=== PATIENT | female | born 1990 | race American Indian/Alaskan Native ===

== ENCOUNTER 2017-03-06 16:55 | Emergency (ER) | payer SELFPAY ==
[2017-03-06 17:12] VITALS: TEMP 98.9
--- NOTE | 2017-03-06 18:07 | ED PDOC ---
Arrival/HPI - General Historian: Patient <Daxa Hopson A - Last Filed: 03/08/17 00:40> <Stef Martinez - Last Filed: 03/09/17 15:20> - General Chief Complaint: Psychiatric Evaluation Time Seen by Provider: 03/06/17 17:32 - History of Present Illness Narrative History of Present Illness (Text): 03/06/17 18:07 26yo morbidly obese female bib BLS for psychiatric evaluation. Patient states she was going through something and mentioned to her mother that she "does want to live". States she did not mean it, but said it at that time. She denies psych history. Denies HI, hallucination, somatic complaint. (Daxa Hopson A) Past Medical History - Provider Review Nursing Documentation Reviewed: Yes - Infectious Disease Hx of Infectious Diseases: None - Reproductive Menopause: No - Psychiatric Hx Substance Use: No <Daxa Hopson A - Last Filed: 03/08/17 00:40> Family/Social History - Physician Review Nursing Documentation Reviewed: Yes Family/Social History: Unknown Family HX Smoking Status: Unknown If Ever Smoked Hx Alcohol Use: No Hx Substance Use: No <Daxa Hopson A - Last Filed: 03/08/17 00:40> Allergies/Home Meds <Daxa Hopson A - Last Filed: 03/08/17 00:40> <Stef Martinez - Last Filed: 03/09/17 15:20> Allergies/Adverse Reactions: Allergies No Known Allergies Allergy (Verified 03/06/17 17:22) Review of Systems - Physician Review All systems were reviewed & negative as marked: Yes - Review of Systems Constitutional: Normal Eyes: Normal ENT: Normal Respiratory: Normal Cardiovascular: Normal Gastrointestinal: Normal Genitourinary Female: Normal Musculoskeletal: Normal Skin: Normal Neurological: Normal Endocrine: Normal Hemo/Lymphatic: Normal Psychiatric: Suicidal Ideation <Daxa Hopson A - Last Filed: 03/08/17 00:40> Physical Exam Vital Signs Reviewed: Yes Temperature: Afebrile Blood Pressure: Normal Pulse: Regular Respiratory Rate: Normal Appearance: Positive for: Well-Appearing, Non-Toxic, Comfortable, Other ( Morbidly obese) Pain Distress: None Mental Status: Positive for: Alert and Oriented X 3 - Systems Exam Head: Present: Atraumatic, Normocephalic Pupils: Present: PERRL Extroacular Muscles: Present: EOMI Conjunctiva: Present: Normal Mouth: Present: Moist Mucous Membranes Neck: Present: Normal Range of Motion Respiratory/Chest: Present: Clear to Auscultation, Good Air Exchange. No: Respiratory Distress, Accessory Muscle Use Cardiovascular: Present: Regular Rate and Rhythm, Normal S1, S2. No: Murmurs Abdomen: Present: Normal Bowel Sounds. No: Tenderness, Distention, Peritoneal Signs Back: Present: Normal Inspection Upper Extremity: Present: Normal Inspection. No: Cyanosis, Edema Lower Extremity: Present: Normal Inspection. No: Edema Neurological: Present: GCS=15, CN II-XII Intact, Speech Normal Skin: Present: Warm, Dry, Normal Color. No: Rashes Psychiatric: Present: Alert, Oriented x 3, Normal Insight, Normal Concentration <Daxa Hopson A - Last Filed: 03/08/17 00:40> Vital Signs Temp Pulse Resp BP Pulse Ox 03/06/17 21:31 82 18 125/70 100 03/06/17 17:11 98.9 F 90 20 123/90 99 Medical Decision Making <Daxa Hopson A - Last Filed: 03/08/17 00:40> <Stef Martinez - Last Filed: 03/09/17 15:20> ED Course and Treatment: 03/08/17 00:40 PT was cleared medically for psych evaluation. She was seen by AAYUSH Sanches and DC home. she was given Keflex rx for UTI. Advised to f/u with her PMD. (Daxa Hopson A) - Lab Interpretations Microbiology Results: Microbiology Results 03/06/17 18:35 Urine,Clean Catch Urine Culture - Final Gram Positive Cocci Lab Results: 03/06/17 18:25 03/06/17 18:25 Lab Results 03/06/17 19:08: Urine Opiates Screen Negative, Urine Methadone Screen Negative, Ur Barbiturates Screen Negative, Ur Phencyclidine Scrn Negative, Ur Amphetamines Screen Negative, U Benzodiazepines Scrn Negative, U Oth Cocaine Metabols Negative, U Cannabinoids Screen Negative 03/06/17 19:08: Urine Color Yellow, Urine Appearance Clear, Urine pH 6.0, Ur Specific [place] 1.020, Urine Protein Negative, Urine Glucose (UA) Negative, Urine Ketones Negative, Urine Blood Negative, Urine Nitrate Negative, Urine Bilirubin Negative, Urine Urobilinogen 0.2, Ur Leukocyte Esterase Small H, Urine RBC 0 - 2, Urine WBC 2 - 5, Ur Epithelial Cells 6 - 8, Urine Bacteria Trace 03/06/17 18:25: Alcohol, Quantitative < 10 03/06/17 18:25: Salicylates < 1 L, Acetaminophen < 10.0 L 03/06/17 18:25: Sodium 141, Potassium 4.0, Chloride 103, Carbon Dioxide 25, Anion Gap 17, BUN 7, Creatinine 0.8, Est GFR ( Amer) > 60, Est GFR (Non- Af Amer) > 60, Random Glucose 99, Calcium 10.0, Total Bilirubin 0.7, AST 21, ALT 26, Alkaline Phosphatase 67, Total Protein 8.4 H, Albumin 4.3, Globulin 4.1 , Albumin/Globulin Ratio 1.0 L 03/06/17 18:25: WBC 6.6, RBC 5.13, Hgb 13.1, Hct 41.6, MCV 81.1, MCH 25.5, MCHC 31.5, RDW 14.8 H, Plt Count 397, MPV 8.9, Gran % 52.7, Lymph % (Auto) 39.1 H, Coffee % (Auto) 6.8 H, Eos % (Auto) 0.9 L, Baso % (Auto) 0.5, Gran # 3.49, Lymph # 2.6, Coffee # 0.5, Eos # 0.1, Baso # 0.03 - PA / MANAGER PUBLISHING / Resident Statement / has reviewed & agrees with the documentation as recorded. <Stef Martinez - Last Filed: 03/09/17 15:20> Disposition/Present on Arrival - Present on Arrival Any Indicators Present on Arrival: No History of DVT/PE: No History of Uncontrolled Diabetes: No Urinary Catheter: No History of Decub. Ulcer: No History Surgical Site Infection Following: None - Disposition Have Diagnosis and Disposition been Completed?: Yes Disposition Time: 21:00 Patient Plan: Discharge <Daxa Hopson - Last Filed: 03/08/17 00:40> <Stef Martinez - Last Filed: 03/09/17 15:20> - Disposition Diagnosis: Depression, UTI (urinary tract infection) Disposition: HOME/ ROUTINE Condition: STABLE Discharge Instructions (ExitCare): Urinary Tract Infection in Women (ED), Depression (ED) Additional Instructions: Follow up with mental health and your PMD Return to ED for any new or worsening symptoms Prescriptions: Cephalexin [cephalexin] 500 mg PO QID #28 cap Referrals: [facility] [Outside] - [facility] up with primary [facility] [place] - Follow up with primary Forms: [employer] (Gu[place]ian)
[2017-03-06 18:40] LABS: BASO # 0.03 [, K/mm3] (0.0-2.0); BASO % 0.5 % (0.0-3.0); EOS # 0.1 (0.0-0.7); EOS % 0.9 % (1.5-5.0); GRAN # 3.49 (1.4-6.5); GRAN % 52.7 % (50.0-68.0); HEMOGLOBIN 13.1 g/dL (12.0-16.0); LYMPH # 2.6 (1.2-3.4); LYMPH % 39.1 % (22.0-35.0); MEAN CELL VOLUME 81.1 fl (80.0-105.0); MEAN CORPUSCULAR HEMOGLOBIN 25.5 pg (25.0-35.0); MEAN CORPUSCULAR HGB CONC 31.5 g/dl (31.0-37.0); MEAN PLATELET VOLUME 8.9 fl (7.0-11.0); MONO # 0.5 (0.1-0.6); MONO % 6.8 % (1.0-6.0); RBC 5.13 [, 10^6/uL] (3.5-6.1); RED CELL DISTRIBUTION WIDTH 14.8 % (11.5-14.5); WHITE BLOOD COUNT 6.6 [, 10^3/ul] (4.5-11.0)
[2017-03-06 18:44] LABS: ALBUMIN 4.3 g/dL (3.0-4.8); ALT/SGPT 26 U/L (7-56); AST/SGOT 21 U/L (14-36); BLOOD UREA NITROGEN 7 mg/dL (7-21); GFR AFRICAN-AMERICAN > 60; GFR NON-AFRICAN AMERICAN > 60
[2017-03-06 18:45] LABS: ACETAMINOPHEN < 10.0 ug/ml (10.0-20.0); SALICYLATE < 1 mg/dL (2.0-20.0)
[2017-03-06 19:33] LABS: URINE BILIRUBIN NEGATIVE (NEGATIVE); URINE BLOOD NEGATIVE (NEGATIVE); URINE GLUCOSE (UA) NEGATIVE (NEGATIVE); URINE LEUKOCYTE ESTERASE SMALL Leu/uL (NEGATIVE); URINE NITRATE NEGATIVE (NEGATIVE); URINE PROTEIN NEGATIVE mg/dL (<30 mg/dL); URINE UROBILINOGEN 0.2 E.U./dL (<1 E.U./dL)
[2017-03-06 19:37] LABS: URINE APPEARANCE CLEAR (CLEAR); URINE COLOR YELLOW (YELLOW)
[2017-03-06 19:44] LABS: BARBITURATES, UR NEGATIVE (NEGATIVE); BENZODIAZEPINES, UR NEGATIVE (NEGATIVE); OPIATES, UR NEGATIVE (NEGATIVE); PHENCYCLIDINE, UR NEGATIVE (NEGATIVE)
[2017-03-06 19:52] LABS: URINE RBC 0 - 2 /hpf (0-2)
[2017-03-06 19:53] LABS: URINE BACTERIA TRACE (NEG)
[2017-03-06 21:32] VITALS: BP 125/70; PULSE 82; RESP 18; O2SAT 100
== END 2017-03-06 21:50 | disposition home or self-care (01) ==
LOC: ED 16:55
DX: N39.0 Urinary tract infection, site not specified (principal); F32.9 Major depressive disorder, single episode, unspecified; E66.01 Morbid (severe) obesity due to excess calories
CPT/HCPCS: 80053; 81001; 85025; 87086; 90791; 99284; G0480